=== PATIENT | female | born 1950 | race Caucasian/White ===

== ENCOUNTER → 2018-08-22 12:24 | Outpatient (CLI) | payer MEDICARE, OTHER, SELFPAY ==
--- NOTE | 2018-08-22 | DI.MRI.S_ITS ---
PROCEDURE: MR KNEE RT WO CON INDICATIONS: OSTEOARTHRITIS OF KNEE TECHNIQUE: Noncontrast sagittal PD fast spin echo and T2 fast spin echo with fat saturation, sagittal 3-D FLASH with fat saturation; coronal T1 spin echo and PD fast spin echo with fat saturation, and axial PD fast spin echo with fat saturation through the knee. COMPARISON: None. FINDINGS: Image quality: Excellent. Menisci: The medial and lateral menisci demonstrate normal morphology and internal signal. The meniscal root ligaments appear intact. Cruciate ligaments: The anterior and posterior cruciate ligaments appear intact. Medial structures: The medial collateral ligament appears intact. The posterior oblique ligament, semimembranosus tendon insertions, oblique popliteal ligament, and meniscocapsular junction appear intact. Visualized portions of the pes anserinus tendons appear normal. No abnormal bursal fluid. Lateral structures: The lateral collateral ligament, long and short heads of the biceps femoris tendon appear intact. The popliteus tendon appears normal; the popliteofibular ligament appears intact. The posterosuperior and anteroinferior popliteomeniscal fascicles appear intact. The arcuate and fabellofibular ligaments appear intact, on either side of the lateral inferior geniculate artery. Iliotibial band appears normal. Anterior structures: The quadriceps and patellar tendons appear intact. Patellar alignment is normal. No femoral trochlear dysplasia or ventral trochlear prominence. No edema in the infrapatellar fat pad. Bones and cartilage: Moderate tricompartmental osteoarthritis is seen most prominent involving the patellofemoral compartment with joint space narrowing, prominent marginal osteophyte formation, subchondral cyst formation and edema particularly involving anterior aspect of lateral femoral condyle and adjacent lateral facet of the posterior patella. No fracture or dislocation is seen. Joint space: There is moderate amount of joint fluid, no gross loose body.. No Iraheta's cyst. Normal appearing synovial plicae are incidentally noted. IMPRESSION: 1. Moderate tricompartmental osteoarthritis most prominent involving patellofemoral compartment as above. No fracture or dislocation. Moderate amount of joint effusion, no gross loose body. 2. Cruciate ligaments are intact. No evidence of focal meniscal tear. Dictated by: Alirio Wiggins M.D. on 08/22/2018 at 15:12 Approved by: Alirio Wiggins M.D. on 08/22/2018 at 15:15
== END ==
PROVIDERS: Visit Provider Orthopaedic Surgery
DX: M17.11 Unilateral primary osteoarthritis, right knee (principal); M25.461 Effusion, right knee
CPT/HCPCS: 73721

== ENCOUNTER 2018-11-06 05:53 | Inpatient (IN) | payer MEDICARE, OTHER, SELFPAY ==
[2018-10-21 10:35] VITALS: BMI 23.3
[2018-11-06] VITALS (13 sets, daily range): BP systolic 103–144; BP diastolic 53–87; PULSE 67–84; RESP 14–20; TEMP 35.3–36.4; O2SAT 94–100; BMI 23.3
[2018-11-06] MEDS: LACTATED RINGERS 1,000 ML 42 ML IV (07:05)
[2018-11-06] MEDS: ACETAMINOPHEN 325 MG TABLET 975 MG PO ×3 (07:23→21:11)
[2018-11-06] MEDS: CELECOXIB 200 MG CAPSULE PO (07:23)
[2018-11-06] MEDS: PREGABALIN 75 MG CAPSULE PO (07:23)
--- NOTE | 2018-11-06 08:45 | DI.RAD.S_ITS ---
PROCEDURE: XR KNEE RT 1TO2V INDICATIONS: prosthesis placement TECHNIQUE: 2 view(s) of the knee acquired. COMPARISON: None. FINDINGS: Bones: Patient is status post knee joint arthroplasty. Hardware components are in expected positions. Visualized bony structures are intact. Soft tissues: Overlying postoperative changes are noted. IMPRESSION: Expected postoperative appearance Dictated by: Lee Troncoso M.D. on 11/06/2018 at 12:57 Approved by: Lee Troncoso M.D. on 11/06/2018 at 12:58
[2018-11-06] MEDS: CEFAZOLIN 2 GM/100 ML FROZ.PIGGY IV ×2 (08:55→18:00)
--- NOTE | 2018-11-06 09:11 | PM.PREOP ---
Pre-operative Note Interval Note History & Physical reviewed/Exam performed by Physician: Yes Changes to H&P: No
--- NOTE | 2018-11-06 09:12 | P.OP_ITS ---
Operative Date/Time/Diagnoses Date of procedure: 11/06/18 Time of procedure: 10:19 Pre-op diagnosis: Right knee osteoarthritis Post-op diagnosis: same Procedure & Clinicians Procedure: Right total knee arthroplasty Same procedure as scheduled: Yes Indications: The patient presents today for total knee arthroplasty after failure of conservative treatment. The nature of the procedure including the risks and benefits, alternatives, postoperative course and expected outcome were discussed and all questions answered. Consent was obtained. Operative site confirmed and marked. Surgeon: Leonides Escobedo Criminal Attorney: Rogerio Perdue Anesthesia Type: General, Spinal and Local Operative Notes Findings: Severe patellofemoral osteoarthritis with relative sparing of the medial and lateral compartments. Closure Type: primary Specimen(s): none sent Prosthetic devices, grafts, tissues, transplants, or devices: [employer] BCS: 5 femoral component, 3 tibial component, 9 mm BCS polyethylene tray and 32 x 7.5 mm round patella Applied: implant(s) Estimated Blood Loss (mL): 25 Blood products transfused: none Tourniquet time (min): 18 Procedure in detail: The patient was taken to the operative suite and placed under spinal and general anesthesia. The patient was given prophylactic antibiotics prior to surgery. The patient was also given tranexamic acid, 1 g, just prior to surgery for postoperative hemostasis. The lateral knee was prepped and the joint injected with 20 mL of 1% Lidocaine with epinephrine. The knee was then prepped and draped in usual sterile fashion. The leg was exsanguinated with an Esmarch dressing and the tourniquet raised to 250 torr. A 15 cm anterior incision was made. Next a medial trivector arthrotomy was made. The extensor mechanism was marked to ensure accurate repair. Initial exposing dissection was carried out medially and laterally. The knee was then extended and the patellar thickness was measured and a cut made removing approximately 7 mm of bone with a goal of restoring normal patellar thickness. The patella was then sized and drilled. Some excess lateral bone was excised and the patellofemoral ligament released. The tourniquet was then released. The knee was then flexed and the [employer] femoral guide was placed. The anterior pins were placed and the distal rotation holes drilled. The distal cutting guide was placed and the templated distal femoral cut was made. The templating cutting block was then placed and the anterior, posterior and chamfer cuts made. The [employer] tibial guide was placed and the alignment checked along the axis of the proximal tibial with a isatu. The proximal tibial cut was then made with an oscillating saw. All meniscus and bony debris was then removed. Flexion extension gaps were checked. No specific balancing was required other than routine exposure and removal of osteophytes. The soft tissues were then injected with a combination of 20 mL of half percent Marcaine with epinephrine and 20 mL of Exparel. The trial components were then placed. The knee went into full extension and flexion beyond 120?. There was excellent medial- lateral balance throughout motion. Patellar tracking was excellent. The trial components were removed and size is confirmed for the final implants. The knee was then exsanguinated with an Esmarch dressing and the tourniquet reapplied for cementing. The knee was cleansed with Pulsavac irrigation and dried. The final components were cemented in with high viscosity vacuum mixed bone cement with antibiotics. The knee was held in extension and the patellar clamp until the cement had adequately cured. The knee was then irrigated with dilute Betadine solution. The extensor mechanism was closed with 5 interrupted #1 Vicryl sutures in 90 degrees of flexion. The joint was then injected with a combination of 1 g of tranexamic acid and 20 mL of quarter percent Marcaine with epinephrine. The subcutaneous tissue was closed with 2-0 Vicryl. The skin was closed with jon and surgical adhesive. An Aquacel dressing and Lyle wrap were then applied. Complications: none Condition: stable Disposition: PACU Plan for aftercare: [facility] protocol for total knee arthroplasty.
--- NOTE | 2018-11-06 09:42 | SUR.OPER ---
Supine on padded OR bed. Pillow under head, arms secured on padded armboards <90 degree abduction. Safety belt across torso. Non-operative leg secured with tape over blanket over lower leg. Operative leg secured in DeMayo/Allan positioner. Foam padded brace at thigh of operative leg.
[2018-11-06] MEDS: TRANEXAMIC ACID 1,000 MG VIAL 1000 MG INJ ×2 (09:52→09:56)
[2018-11-06] MEDS: BUPIVACAINE LIPOSOME 266 MG/20 ML VIAL INJ (09:53)
[2018-11-06] MEDS: BUPIVACAINE 0.5% W/ EPI (PF) VIAL 30 ML INJ (09:54)
--- NOTE | 2018-11-06 11:21 | PC.NURSE ---
Pt brought to the AC floor from PACU at approx. 1100. She is A & Ox3. Dressing CDI, she denies pain and has been oriented to the room.
[2018-11-06] MEDS: OXYCODONE IR 5 MG TABLET PO ×3 (12:00→22:04)
[2018-11-06] MEDS: LACTATED RINGERS 1,000 ML 125 ML IV ×2 (12:03→23:33)
[2018-11-06] MEDS: ONDANSETRON 4 MG ODT PO (12:14)
[2018-11-06] MEDS: CARBIDOPA-LEVODOPA 25/100 TABLET 1 EACH PO ×3 (12:14→21:12)
--- NOTE | 2018-11-06 14:48 | PT.IIE ---
Current Diagnoses Unspecified dementia without behavioral disturbance (11/06/18) Bipolar disorder, unspecified (11/06/18) Major depressive disorder, single episode, unspecified (11/06/18) Anxiety disorder, unspecified (11/06/18) Parkinson's disease (11/06/18) Unilateral primary osteoarthritis, right knee (11/06/18) Chest pain, unspecified (11/06/18) Surgery Performed Operation Date: 11/06/18 08:45 Actual Procedures p Total Knee Arthroplasty(Right) - Leonides Escobedo MD Surgical History (Last Updated 10/21/18 @ 11:06 by Madeline Melgar, RN) H/O foot surgery (Acute) History of (Acute) History of carpal tunnel release (Acute) History of colonoscopy (Acute) History of esophagogastroduodenoscopy (EGD) (Acute) Hx laparoscopic cholecystectomy (Acute) Medical History (Last Updated 10/21/18 @ 12:43 by Madeline Melgar, RN) Acute kidney failure, unspecified (Acute) Allergic rhinitis (Acute) Anxiety (Acute) Arthralgia (Acute) Bilateral renal cysts (Acute) Bipolar disorder (Acute) Bloating (Acute) Bradykinesia (Acute) Bruises easily (Acute) CAD (coronary artery disease) (Acute) Carpal tunnel syndrome on both sides (Acute) Cataract (lens) fragments in eye following cataract surgery, bilateral (Acute) Chest pain on exertion (Acute) Chronic kidney disease, stage III (moderate) (Acute) Constipation (Acute) Coronary atherosclerosis of [place] coronary artery (Acute) Cystitis (Acute) Degenerative arthritis of right knee (Acute) Depression (Acute) Diverticulitis (Acute) Dysuria (Acute) Epigastric pain (Acute) Essential hypertension (Acute) Exertional dyspnea (Acute) GERD (gastroesophageal reflux disease) (Acute) Gait difficulty (Acute) Hair loss (Acute) Herpes simplex without complication (Acute) History of gastric ulcer (Acute) History of hypokalemia (Acute) Hydronephrosis (Acute) Hyperglycemia (Acute) Hyperlipidemia (Acute) Hypothyroid (Acute) Interstitial lung disease (Acute) Left anterior fascicular block (Acute) Memory impairment (Acute) Microscopic hematuria (Acute) Multiple abrasions (Acute) Myalgia (Acute) Nausea (Acute) Osteoarthritis of knees, bilateral (Acute) Osteopenia (Acute) Osteoporosis (Acute) Parkinsons disease (Acute) Polyphagia (Acute) Postmenopausal (Acute) Rectal bleeding (Acute) Right carpal tunnel syndrome (Acute) Shoulder strain (Acute) Somnolence (Acute) Superficial phlebitis (Acute) Tear of meniscus of knee (Acute) Tremor (Acute) Urinary urgency (Acute) Weight increase (Acute) Physical Therapy Inpatient Evaluation/Re-Eval M1 PT/OT-IP Prior Functional Status Start: 11/06/18 12:45 Freq: NEEDED Status: Active Protocol: Document 11/06/18 14:48 AB (Rec: 11/06/18 16:53 AB [id number]) Medical Review Prior Functional Status Medical History Reviewed Yes Diet/Fluid Consistency Regular Communication No communication deficits noted. Pt tends to respond to questions with lengthy way which gets her to SOB from time to time. Mobility and Gait Pt states she was an independent ambulator at home and community without using AD . Pt states she does has difficulty bending her knees while picking up objects from the floor or lower shelf. Her was able to help as needed Activities of Daily Living and IADL's Pt was independent for ADLs and IADLs without using AD. Pt was able to vaccuum her house few days before surgery. Pt's usually helps pt for grocery shopping. Social History Household Members spouse Living Arrangements House Number of Floors (Floors) Two Floors Number of Stairs To Enter/Railing? has 8 steps to enter with bilateral rails ascending. pt stays on main level of the house Home Environment Standard Height Toilet Tub/Shower Home Equipment Front Wheel Walker Employment Status Retired Additional Social History Comment has a tripod cane M2 PT-IP Current Condition Start: 11/06/18 12:45 Freq: NEEDED Status: Active Protocol: Document 11/06/18 14:48 AB (Rec: 11/06/18 16:53 AB [id number]) Physical Therapy Current Condition Current Condition Evaluation Date 11/06/18 Treatment Diagnosis s/p R TKA; difficulties in walking Onset Date 11/06/18 Weight Bearing Status Weight Bearing Status Weight Bear as Tolerated M3 PT-IP Subjective Start: 11/06/18 12:45 Freq: NEEDED Status: Active Protocol: Document 11/06/18 14:48 AB (Rec: 11/06/18 16:53 AB [id number]) Subjective Physical Therapy Visit Type Type Initial Evaluation Visit Start Time 14:48 Visit Stop Time 15:19 Total Visit Minutes 31 Number of PEDIATRIC PSYCHIATRIST Visits 0 Physical Therapy Visit Comments Patient Comments pt agreeable to do PT Therapy Pain Assessment Pain When Pain Assessed At Rest Pain Present Pain Present Pain Reported Location Right Knee Intensity 8 Scale Used Numeric (1 - 10) Pain Management Techniques Apply Cold Re-positioning Timing of Activity with Medications M4 PT-IP Mobility and Gait Start: 11/06/18 12:45 Freq: NEEDED Status: Active Protocol: Document 11/06/18 14:48 AB (Rec: 11/06/18 16:53 AB [id number]) PT-Bed Mobility Assessment Rolling Level of Assist Standby Assistance Supine to Sit Supine to Sit Standby Assistance Sit to Supine Sit to Supine Standby Assistance Scooting Scooting to Edge of Bed Standby Assistance Scooting Up and Down in Bed Standby Assistance PT-Transfer Assessment Sit to and From Stand Sit to and from Stand Standby Assistance 1 Person Assistance Use of Upper Extremities Equipment Transfer Assistive Device Gait Belt Front Wheeled Walker Orthotic/Prosthetic Devices or Brace: No Transfers Transfer Destination Toilet Transfer Technique pt ambulated to the toilet using FWW SBA Comments Mobility Comments pt requested to use the toilet after ambulation in hallway. pt required SBA. pt completing toileting SBA to CGA. pt ambulated to the sink using FWW SBA and was able to maintain standing SBA while doing handwashing. pt ambulated back to bed. stated that she has been awake since 2am. pt completed sit to supine SBA. positioned pt in bed. ice pack provided. call light and table placed within reach. Gait Assessment Gait Gait Assistance Required: Standby Assistance 1 Person Assist Distance (Feet) 75 Able to Maintain Weight Bearing Status Yes During Gait Assistive Devices Assistive Device Gait Belt Front Wheeled Walker Gait Deviations General Gait Pattern Antalgic Decreased Stride Length Decreased Feet Clearance Factors Limiting Gait Function Factors Limiting Gait Function Decreased Activity Tolerance Decreased Strength Limited Range of Motion Pain Poor Balance Poor Safety Awareness PT-Balance Assessment Sitting Balance and Reactions Static Sitting Balance Ability Good Dynamic Sitting Balance Ability Good Standing Balance and Reactions Static Standing Balance Ability Fair Dynamic Standing Balance Ability Fair Device Used FWW M5 PT-IP Objective Assessments Start: 11/06/18 12:45 Freq: NEEDED Status: Active Protocol: Document 11/06/18 14:48 AB (Rec: 11/06/18 16:53 AB [id number]) Orientation Orientation/Cognition Level of Alertness Alert Orientation Name Age Place Situation Memory Description Short Term Impaired Gross Range of Motion Lower Extremity ROM Assessment Right Impaired Impairments R knee flexion to ~ 70 deg R knee extension lacking ~ 10 degrees from neutral Strength Lower Extremity Strength Assessment Right Impaired Knee 3+/5 Sensation Assessment Sensation Gross Sensation WNL Muscle Tone Muscle Tone WNL Yes M6 PT-IP Treatment Start: 11/06/18 12:45 Freq: NEEDED Status: Active Protocol: Document 11/06/18 14:48 AB (Rec: 11/06/18 16:53 AB [id number]) Physical Therapy Treatment Exercises Exercises Heel Slides Education Education Provided Precautions Weight Bearing Status Post-Op Packet Safety M7 PT-IP Assessment and Plan Start: 11/06/18 12:45 Freq: NEEDED Status: Active Protocol: Document 11/06/18 14:48 AB (Rec: 11/06/18 16:53 AB [id number]) PT Summary Assessment and Plan Potential Rehabilitation Potential Good Status of Condition at Evaluation Stable Summary Impairments Pain ROM Strength Balance Coordination Sensation Tone Cognition Bed Mobility Transfers Gait Activity Tolerance Assessment Summary pt requiring SBA with mobility . will complete stair climbing training and if able to complete safely, pt may go home when medically stable. pt stated that she is set up for outpt PT. Goals Bed Mobility Goal Independent Transfer Goal Independent Front Wheeled Walker Gait Goal Independent Front Wheel Walker Gait Distance 150 Other Goals up/down 8 steps using bilateral rails SBA Days to Meet Goals 3 Frequency of Treatment Frequency Of Treatment Twice a Day Treatment Plan Physical Therapy Treatment Plan Bed Mobility Training Transfer Training Gait Training Therapeutic Exercise Balance Retraining Post Op Education Discharge Planning Hot or Cold Pack Neuromuscular Re-ed Coordination Retraining Manual Therapy Other Recommendations and Next Treatment ambulation, stair climbing, Focus caregiver training when appropriate Recommendations To Nursing Amount of Assist Needed 1 Person Assist Discharge Recommendations PT Discharge Recommendations Home with Assistance Outpatient PT
[2018-11-06] MEDS: ISOSORBIDE MONONITRATE ER 30 MG TABLET PO (15:47)
[2018-11-06] MEDS: DICYCLOMINE 10 MG CAPSULE 20 MG PO ×2 (15:47→21:14)
[2018-11-06] MEDS: ONDANSETRON 4 MG/2 ML INJ IV (15:53)
[2018-11-06] MEDS: CARVEDILOL 3.125 MG TABLET PO (21:12)
[2018-11-06] MEDS: ASPIRIN EC 81 MG TABLET PO (21:12)
[2018-11-06] MEDS: LORazepam 1 MG TABLET PO (21:14)
[2018-11-06] MEDS: QUETIAPINE 25 MG TABLET 75 MG PO (21:15)
[2018-11-06] MEDS: ROPINIROLE 4 MG TABLET 8 MG PO (21:16)
[2018-11-07 00:23] VITALS: BP 106/69; PULSE 76; RESP 16; TEMP 36.7; O2SAT 97
[2018-11-07] MEDS: CEFAZOLIN 2 GM/100 ML FROZ.PIGGY IV (01:09)
[2018-11-07] MEDS: LEVOTHYROXINE 137 MCG TABLET PO (05:20)
[2018-11-07 05:23] LABS: Hemoglobin 11.7 g/dL (12.0-16.0)
[2018-11-07 05:30] VITALS: BP 135/80; PULSE 76; RESP 18; TEMP 36.4; O2SAT 100
[2018-11-07] MEDS: ACETAMINOPHEN 325 MG TABLET 975 MG PO (07:42)
[2018-11-07 07:43] VITALS: BP 111/73; PULSE 72
[2018-11-07] MEDS: CARVEDILOL 3.125 MG TABLET PO (07:43)
[2018-11-07] MEDS: FENOFIBRATE 48 MG TABLET PO (07:45)
[2018-11-07] MEDS: CARBIDOPA-LEVODOPA 25/100 TABLET 1 EACH PO (07:45)
[2018-11-07] MEDS: ASPIRIN EC 81 MG TABLET PO (07:46)
[2018-11-07] MEDS: DOCUSATE 250 MG CAPSULE PO (07:47)
[2018-11-07] MEDS: DICYCLOMINE 10 MG CAPSULE 20 MG PO (07:47)
[2018-11-07] MEDS: ISOSORBIDE MONONITRATE ER 30 MG TABLET PO (07:48)
[2018-11-07] MEDS: LORATADINE 10 MG TABLET PO (07:49)
[2018-11-07] MEDS: SERTRALINE 25 MG TABLET PO (07:54)
[2018-11-07] MEDS: FLUTICASONE 120 SPRAY/16 GM SPRAY.SUSP NASAL (07:54)
[2018-11-07] MEDS: HYDROCODONE/ACET 5/325 TABLET 2 TAB PO (07:57)
[2018-11-07] MEDS: SODIUM CHLORIDE 0.9% FLUSH 10 ML IV (07:58)
[2018-11-07 08:43] VITALS: O2SAT 96
[2018-11-07 09:00] VITALS: BP 111/73; PULSE 73; RESP 18; TEMP 36.5; O2SAT 99
--- NOTE | 2018-11-07 09:25 | PT.IPTN ---
Current Diagnoses Unspecified dementia without behavioral disturbance (11/06/18) Bipolar disorder, unspecified (11/06/18) Major depressive disorder, single episode, unspecified (11/06/18) Anxiety disorder, unspecified (11/06/18) Parkinson's disease (11/06/18) Unilateral primary osteoarthritis, right knee (11/06/18) Chest pain, unspecified (11/06/18) Surgery Performed Operation Date: 11/06/18 08:45 Actual Procedures p Total Knee Arthroplasty(Right) - Leonides Escobedo MD Physical Therapy Treatment Note M2 PT-IP Current Condition Start: 11/06/18 12:45 Freq: NEEDED Status: Active Protocol: Document 11/06/18 14:48 AB (Rec: 11/06/18 16:53 AB [id number]) Physical Therapy Current Condition Current Condition Evaluation Date 11/06/18 Treatment Diagnosis s/p R TKA; difficulties in walking Onset Date 11/06/18 Weight Bearing Status Weight Bearing Status Weight Bear as Tolerated M3 PT-IP Subjective Start: 11/06/18 12:45 Freq: NEEDED Status: Active Protocol: Document 11/07/18 09:25 GGD (Rec: 11/07/18 11:56 GGD [email or web address]) Subjective Physical Therapy Visit Type Type Treatment Note Visit Start Time 09:00 Visit Stop Time 09:25 Total Visit Minutes 25 Number of DISTRICT SERVICE MANAGER Visits 1 Physical Therapy Visit Comments Patient Comments Pt states she feels ready to go home. Therapy Pain Assessment Pain When Pain Assessed At Rest Pain Present Pain Present Pain Reported Location Right Knee Intensity 2 Scale Used Numeric (1 - 10) M4 PT-IP Mobility and Gait Start: 11/06/18 12:45 Freq: NEEDED Status: Active Protocol: Document 11/07/18 09:25 GGD (Rec: 11/07/18 11:56 GGD [id number]) PT-Bed Mobility Assessment Sit to Supine Sit to Supine Standby Assistance Scooting Scooting to Edge of Bed Standby Assistance Scooting Up and Down in Bed Standby Assistance PT-Transfer Assessment Sit to and From Stand Sit to and from Stand Standby Assistance 1 Person Assistance Use of Upper Extremities Equipment Transfer Assistive Device Gait Belt Front Wheeled Walker Orthotic/Prosthetic Devices or Brace: No Transfers Transfer Destination Bed Wheelchair Gait Assessment Gait Gait Assistance Required: Standby Assistance 1 Person Assist Distance (Feet) 100 Able to Maintain Weight Bearing Status Yes During Gait Assistive Devices Assistive Device Gait Belt Front Wheeled Walker Gait Deviations General Gait Pattern Antalgic Decreased Stride Length Decreased Feet Clearance Factors Limiting Gait Function Factors Limiting Gait Function Decreased Activity Tolerance Decreased Strength Limited Range of Motion Pain Poor Balance Poor Safety Awareness Stair Climbing Assessment Evaluation Level of Assist On Stairs Contact Guard Assistance Devices Stair Climbing Assistive Devices Left Railing Right Railing Technique/Endurance Stair Climbing Direction Ascend and Descend Stair Climbing Technique Step to Step Number of Steps Climbed 3 Query Text: Stair Climbing Set # Repetitions (reps) 2 M5 PT-IP Objective Assessments Start: 11/06/18 12:45 Freq: NEEDED Status: Active Protocol: Document 11/06/18 14:48 AB (Rec: 11/06/18 16:53 AB [id number]) Orientation Orientation/Cognition Level of Alertness Alert Orientation Name Age Place Situation Memory Description Short Term Impaired Gross Range of Motion Lower Extremity ROM Assessment Right Impaired Impairments R knee flexion to ~ 70 deg R knee extension lacking ~ 10 degrees from neutral Strength Lower Extremity Strength Assessment Right Impaired Knee 3+/5 Sensation Assessment Sensation Gross Sensation WNL Muscle Tone Muscle Tone WNL Yes M6 PT-IP Treatment Start: 11/06/18 12:45 Freq: NEEDED Status: Active Protocol: Document 11/07/18 09:25 GGD (Rec: 11/07/18 11:56 GGD [id number]) Physical Therapy Treatment Exercises Exercises Ankle Pumps Quad Sets Seated Knee Flexion/Extension Education Education Provided Precautions M7 PT-IP Assessment and Plan Start: 11/06/18 12:45 Freq: NEEDED Status: Active Protocol: Document 11/07/18 09:25 GGD (Rec: 11/07/18 11:56 GGD [email or web address]) PT Summary Assessment and Plan Summary Assessment Summary Pt improving with mobility. She was able to progress gait. She was safe and stable with stair mobility. She is safe to home D/C when medically stable . Frequency of Treatment Frequency Of Treatment Twice a Day Treatment Plan Physical Therapy Treatment Plan Bed Mobility Training Transfer Training Gait Training Therapeutic Exercise Balance Retraining Post Op Education Discharge Planning Hot or Cold Pack Neuromuscular Re-ed Coordination Retraining Manual Therapy Recommendations To Nursing Amount of Assist Needed 1 Person Assist Discharge Recommendations PT Discharge Recommendations Home with Assistance Outpatient PT
[2018-11-07] MEDS: TOLTERODINE LA 4 MG PO (12:09)
--- NOTE | 2018-11-07 12:45 | P.DS_ITS ---
History of Present Illness Date Patient Seen: 11/07/18 Time Patient Seen: 08:37 Chief complaint: right knee [id number] Narrative: The patient presents today for total knee arthroplasty after failure of conservative treatment. The nature of the procedure including the risks and benefits, alternatives, postoperative course and expected outcome were discussed and all questions answered. Consent was obtained. Operative site confirmed and marked. Discharge Providers Date of admission: 11/06/18 05:53 Consults: 11/06/18 11:14 Consult to Discharge Planning Routine Comment: Consult to Physical Therapy Evaluate & Treat Comment: Physician Instructions: postop TKA protocol Consult to Respiratory Therapy Evaluate & Treat Comment: Physician Instructions: Evaluate and treat Discharge provider: Ngoc Solitario PA-C Discharge Date: 11/07/18 Summary Discharge Diagnosis: s/p total knee arthroplasty Hospital Course: Edna was admitted for a right total knee arthroplasty with Dr. Escobedo, and she has consented to procedure. Hospital course was unremarkable. On postop day 1. Patient was ready for discharge home. She was eating and voiding without difficulty or assistance. She has worked with physical therapy throughout her stay. She has outpatient physical therapy scheduled. Her pain was well controlled with [place]. Status at Discharge Functional status at discharge: uses cane/walker Exam Vital Signs (past 8 hours): - 11/07/18 05:30 11/07/18 07:43 11/07/18 08:43 Temperature 97.5 F L Pulse Rate 76 72 Respiratory Rate 18 Blood Pressure 135/80 111/73 Pulse Oximetry 100 96 11/07/18 09:00 Temperature 97.7 F Pulse Rate 73 Respiratory Rate 18 Blood Pressure 111/73 Pulse Oximetry 99 Fraction of Inspired Oxygen 21 Oxygen Delivery Method Room Air Oxygen Flow Rate 0 Narrative Exam Narrative: Patient lying in bed in no acute distress. She is alert and oriented x3. Dressing on right knee is CDI. Lyle wrap in place. Calves are soft , compressible, nontender bilaterally. Sensation intact to light touch throughout bilateral lower extremities. Pulses are symmetrical. Her pain was well-controlled last night. She did have some nausea with the oxycodone. She will try taking [place] instead for her pain. Objective Labs Result Diagrams: 11/07/18 05:08 Labs: Laboratory Results - last 24 hr 11/07/18 05:08 Hgb 11.7 L Hct 35.0 L Discharge Plan Discharge Plan Patient Disposition: Home Discharge Med Rec/Prescriptions Prescriptions: New acetaminophen 325 mg Tablet 975 mg PO TID Qty: 60 RF: 0 hydrocodone-acetaminophen [[place]] 5-325 mg tablet 1 tab PO Q4-6H PRN (Reason: pain (scale score 7-10)) Qty: 60 RF: 0 Continue levothyroxine 137 mcg Tablet 137 mcg PO DAILY RF: 0 tolterodine 4 mg Capsule,Extended Release 24hr 4 mg PO DAILY RF: 0 isosorbide mononitrate 30 mg Tablet Extended Release 24 Hr 30 mg PO QAM RF: 0 alendronate 70 mg Tablet 70 mg PO QWEEK RF: 0 divalproex 500 mg Tablet,Delayed Release (Dr/Ec) 500 mg PO DAILY RF: 0 carvedilol 3.125 mg Tablet 3.125 mg PO BID RF: 0 flaxseed oil 1,000 mg Capsule 1,000 mg PO TID RF: 0 dicyclomine 20 mg Tablet 20 mg PO TID RF: 0 ranitidine HCl 150 mg Tablet 150 mg PO TID RF: 0 lorazepam 1 mg Tablet 1 mg PO BEDTIME RF: 0 docusate sodium 250 mg Capsule 250 mg PO DAILY RF: 0 carbidopa-levodopa 25-100 mg Tablet 1 tab PO QID RF: 0 fluticasone 50 mcg/actuation [place],Suspension 2 spray INTRANASAL DAILY RF: 0 sertraline 50 mg Tablet 25 mg PO DAILY RF: 0 loratadine 10 mg Tablet 10 mg PO DAILY RF: 0 cholecalciferol (vitamin D3) 1,000 unit Capsule 1,000 unit PO BID RF: 0 magnesium 200 mg Tablet 250 mg PO DAILY RF: 0 cyclosporine [Restasis] 0.05 % Dropperette 1 drp ophthalmic (eye) Q12H RF: 0 quetiapine 50 mg Tablet 75 mg PO BEDTIME RF: 0 ropinirole 2 mg Tablet Extended Release 24 Hr 8 mg PO BEDTIME RF: 0 fenofibrate 54 mg Tablet 54 mg PO DAILY RF: 0 lurasidone 40 mg Tablet 20 mg PO SEEINSTR RF: 0 omega 4-wuh-zpf-fish oil 100-160-1,000 mg Capsule 1 dose PO DIRECTED RF: 0 magnesium oxide 500 mg Tablet 250 mg PO DAILY RF: 0 Changed aspirin 81 mg Tablet,Delayed Release (Dr/Ec) 81 mg PO BID Qty: 0 RF: 0 Follow up/Referrals: Leonides Escobedo MD [Physician] - Skin/Wound/Dressing Care Report to your healthcare provider any signs of infection, such as:: chills, fever and increased pain Dressing: leave in place until second post op appointment Visit Report/Discharge Packet Instructions: DI for Knee Replacement, Hydrocodone Combination Products Visit Report Forms: Stroke Signs & Symptoms Discharge Data Attending Provider: Leonides Escobedo Admit Date/Time: 11/06/18 05:53 Discharges patient from system. Discharge Date/Time: 11/07/18 12:30
== END 2018-11-07 12:30 | disposition home or self-care (01) | DRG 470 ==
PROVIDERS: Admitting Provider Orthopaedic Surgery; Visit Provider Orthopaedic Surgery
PROC: 0SRC0JZ Replacement of Right Knee Joint with Synthetic Substitute, Open Approach (ICD-10-PCS; CPT 27447; principal; 2018-11-06 08:45)
DX: M17.11 Unilateral primary osteoarthritis, right knee (principal); F31.89 Other bipolar disorder; I10 Essential (primary) hypertension; E05.90 Thyrotoxicosis, unspecified without thyrotoxic crisis or storm; E78.5 Hyperlipidemia, unspecified; Z87.891 Personal history of nicotine dependence; G20 Parkinson's disease
CPT/HCPCS: 36415; 73560; 85014; 85018; 94762; 97116; 97161; 97530; C1776; C9290; J0690; J2250; J2405